=== PATIENT | female | born 1950 | race Caucasian/White ===

== ENCOUNTER → 2024-03-07 15:29 | Outpatient (REF) | payer OTHER, SELFPAY ==
[2024-03-07 16:09] LABS: % Basophils 0.8 % (0-2); % Eosinophils 2.8 % (0-6); % Immature Granulocytes 0.6 % (0-0.5); % Lymphocytes 34.7 % (20.5-51.1); % Monocytes 4.5 % (1.7-9.3); % Neutrophils 56.6 % (42.2-75.2); Absolute Eosinophils 0.1 10^3/uL (0-0.7); Absolute Lymphocytes 1.2 10^3/uL (1.2-3.4); Absolute Monocytes 0.2 10^3/uL (0.1-0.6); Hemoglobin 9.7 g/dL (12.0-16.0); Mean Corp Hgb Conc. 31.3 g/dL (33.0-37.0); Mean Corpuscular Hgb 33.3 pg (27.0-31.0); Mean Corpuscular Volume 106.5 fL (81.0-99.0); Mean Platelet Volume 10.7 fL (7.4-10.4); Nucleated Red Blood Cells % 0 %; Platelet Count 196 10^3/uL (130-400); Red Blood Cell Count 2.91 10^6/uL (4.20-5.40); Red Cell Dist. Width 17.8 % (11.5-14.5); White Blood Cell Count 3.6 10^3/uL (4.8-10.8)
[2024-03-07 16:25] LABS: ALT (SGPT) 32 U/L (0-35); AST (SGOT) 41 U/L (14-36); Albumin 4.6 g/dl (3.5-5.0); Alkaline Phosphatase 78 U/L (38-126); Blood Urea Nitrogen 31 mg/dl (7-17); Calcium 9.8 mg/dl (8.4-10.2); Carbon Dioxide 22 mmol/L (22-30); Chloride 107 mmol/L (98-107); Glucose 92 mg/dl (70-99); Potassium 4.3 mmol/L (3.5-5.1); Sodium 141 mmol/L (135-145); Total Bilirubin 0.4 mg/dl (0.2-1.3)
== END ==
LOC: OIDL 15:29
PROVIDERS: ATTENDING PHYSICIAN Nurse Practitioner Adult Health; FAMILY PHYSICIAN Internal Medicine
DX: C50.412 Malignant neoplasm of upper-outer quadrant of left female breast (principal); C79.51 Secondary malignant neoplasm of bone; C78.6 Secondary malignant neoplasm of retroperitoneum and peritoneum; R63.4 Abnormal weight loss
CPT/HCPCS: 80053; 85025

== ENCOUNTER → 2024-07-28 15:46 | Outpatient (REF) | payer OTHER, SELFPAY ==
[2024-07-28 13:36] LABS: % Basophils 1.6 % (0-2); % Lymphocytes 35.4 % (20.5-51.1); % Monocytes 6.8 % (1.7-9.3); % Neutrophils 55.2 % (42.2-75.2); Absolute Basophils 0.1 10^3/uL (0-0.2); Absolute Lymphocytes 1.1 10^3/uL (1.2-3.4); Absolute Monocytes 0.2 10^3/uL (0.1-0.6); Absolute Neutrophils 1.7 10^3/uL (1.4-6.5); Hematocrit 25.4 % (37.0-47.0); Hemoglobin 8.2 g/dL (12.0-16.0); Mean Corp Hgb Conc. 32.3 g/dL (33.0-37.0); Mean Corpuscular Hgb 34.5 pg (27.0-31.0); Mean Corpuscular Volume 106.7 fL (81.0-99.0); Mean Platelet Volume 9.4 fL (7.4-10.4); Platelet Count 240 10^3/uL (130-400); Red Blood Cell Count 2.38 10^6/uL (4.20-5.40); Red Cell Dist. Width 17.9 % (11.5-14.5); White Blood Cell Count 3.1 10^3/uL (4.8-10.8)
== END ==
LOC: OIDL 15:46
PROVIDERS: ATTENDING PHYSICIAN Internal Medicine Hematology & Oncology
DX: N63.21 Unspecified lump in the left breast, upper outer quadrant (principal); D63.8 Anemia in other chronic diseases classified elsewhere; D68.9 Coagulation defect, unspecified; R63.4 Abnormal weight loss; C50.412 Malignant neoplasm of upper-outer quadrant of left female breast; R60.0 Localized edema; R93.7 Abnormal findings on diagnostic imaging of other parts of musculoskeletal system; Z13.820 Encounter for screening for osteoporosis
CPT/HCPCS: 85025

== ENCOUNTER → 2024-11-17 14:42 | Outpatient (REF) | payer OTHER, SELFPAY ==
[2024-11-17 14:43] LABS: Hematocrit 25.3 % (37.0-47.0); Hemoglobin 8.0 g/dL (12.0-16.0); Mean Corp Hgb Conc. 31.6 g/dL (33.0-37.0); Mean Corpuscular Volume 105.0 fL (81.0-99.0); Platelet Count 278 10^3/uL (130-400); Red Cell Dist. Width 19.8 % (11.5-14.5)
== END ==
LOC: OIDL 14:42
PROVIDERS: ATTENDING PHYSICIAN Internal Medicine Hematology & Oncology
DX: N63.21 Unspecified lump in the left breast, upper outer quadrant (principal); D63.8 Anemia in other chronic diseases classified elsewhere; D68.9 Coagulation defect, unspecified; D64.9 Anemia, unspecified; R63.4 Abnormal weight loss; C50.412 Malignant neoplasm of upper-outer quadrant of left female breast; R60.0 Localized edema; R93.7 Abnormal findings on diagnostic imaging of other parts of musculoskeletal system; Z13.820 Encounter for screening for osteoporosis; R18.8 Other ascites; C79.51 Secondary malignant neoplasm of bone; C78.6 Secondary malignant neoplasm of retroperitoneum and peritoneum; D53.9 Nutritional anemia, unspecified; D63.0 Anemia in neoplastic disease
CPT/HCPCS: 85025

== ENCOUNTER → 2024-11-28 08:18 | Outpatient (REF) | payer OTHER, SELFPAY ==
[2024-11-28 09:35] LABS: Hematocrit 28.8 % (37.0-47.0); Hemoglobin 8.7 g/dL (12.0-16.0); Mean Corp Hgb Conc. 30.2 g/dL (33.0-37.0); Mean Corpuscular Volume 105.5 fL (81.0-99.0); Nucleated Red Blood Cells % 0.3 %; Platelet Count 397 10^3/uL (130-400); Red Cell Dist. Width 19.4 % (11.5-14.5)
[2024-11-28 09:57] LABS: Glycohemoglobin (HgbA1c) 5.2 % (4.0-5.6)
[2024-11-28 10:19] LABS: ALT (SGPT) 16 U/L (0-35); AST (SGOT) 27 U/L (14-36); Albumin 4.1 g/dl (3.5-5.0); Alkaline Phosphatase 87 U/L (38-126); Blood Urea Nitrogen 28 mg/dl (7-17); Calcium 9.4 mg/dl (8.4-10.2); Carbon Dioxide 30 mmol/L (22-30); Chloride 103 mmol/L (98-107); Glucose 89 mg/dl (70-99); Potassium 4.9 mmol/L (3.5-5.1); Sodium 141 mmol/L (135-145); Total Protein 7.5 g/dl (6.3-8.2); eGFR 39.73
== END ==
LOC: REG 08:18
PROVIDERS: ATTENDING PHYSICIAN Internal Medicine Hematology & Oncology; FAMILY PHYSICIAN Internal Medicine
DX: N63.21 Unspecified lump in the left breast, upper outer quadrant (principal); D63.8 Anemia in other chronic diseases classified elsewhere; D68.9 Coagulation defect, unspecified; D64.9 Anemia, unspecified; R63.4 Abnormal weight loss; C50.412 Malignant neoplasm of upper-outer quadrant of left female breast; R60.0 Localized edema; R93.7 Abnormal findings on diagnostic imaging of other parts of musculoskeletal system; Z13.820 Encounter for screening for osteoporosis; R18.8 Other ascites; C79.51 Secondary malignant neoplasm of bone; C78.6 Secondary malignant neoplasm of retroperitoneum and peritoneum; D53.9 Nutritional anemia, unspecified; D63.0 Anemia in neoplastic disease
CPT/HCPCS: 36415; 80053; 83036; 85025

== ENCOUNTER → 2024-11-30 16:22 | Outpatient (REF) | payer OTHER, SELFPAY ==
[2024-11-30 13:31] LABS: ALT (SGPT) 19 U/L (0-35); AST (SGOT) 31 U/L (14-36); Albumin 4.4 g/dl (3.5-5.0); Alkaline Phosphatase 91 U/L (38-126); Blood Urea Nitrogen 30 mg/dl (7-17); Calcium 10.3 mg/dl (8.4-10.2); Carbon Dioxide 32 mmol/L (22-30); Chloride 102 mmol/L (98-107); Glucose 85 mg/dl (70-99); Potassium 4.7 mmol/L (3.5-5.1); Sodium 141 mmol/L (135-145); Total Protein 8.0 g/dl (6.3-8.2); eGFR 33.84
== END ==
LOC: OIDL 16:22
PROVIDERS: ATTENDING PHYSICIAN Internal Medicine Hematology & Oncology
DX: N63.21 Unspecified lump in the left breast, upper outer quadrant (principal); D63.8 Anemia in other chronic diseases classified elsewhere; D68.9 Coagulation defect, unspecified; D64.9 Anemia, unspecified; R63.4 Abnormal weight loss; C50.412 Malignant neoplasm of upper-outer quadrant of left female breast; R60.0 Localized edema; R93.7 Abnormal findings on diagnostic imaging of other parts of musculoskeletal system; Z13.820 Encounter for screening for osteoporosis; R18.8 Other ascites; C79.51 Secondary malignant neoplasm of bone; C78.6 Secondary malignant neoplasm of retroperitoneum and peritoneum; D53.9 Nutritional anemia, unspecified; D63.0 Anemia in neoplastic disease
CPT/HCPCS: 80053

== ENCOUNTER → 2024-12-07 11:49 | Outpatient (REF) | payer OTHER, SELFPAY ==
[2024-12-07 13:39] LABS: Glucose 87 mg/dl (70-99)
== END ==
LOC: REG 11:49
PROVIDERS: ATTENDING PHYSICIAN Internal Medicine Hematology & Oncology; FAMILY PHYSICIAN Internal Medicine
DX: N63.21 Unspecified lump in the left breast, upper outer quadrant (principal); D63.8 Anemia in other chronic diseases classified elsewhere; D68.9 Coagulation defect, unspecified; D64.9 Anemia, unspecified; R63.4 Abnormal weight loss; C50.412 Malignant neoplasm of upper-outer quadrant of left female breast; R60.0 Localized edema; R93.7 Abnormal findings on diagnostic imaging of other parts of musculoskeletal system; Z13.820 Encounter for screening for osteoporosis; R18.8 Other ascites; C79.51 Secondary malignant neoplasm of bone; C78.6 Secondary malignant neoplasm of retroperitoneum and peritoneum; D53.9 Nutritional anemia, unspecified; D63.0 Anemia in neoplastic disease
CPT/HCPCS: 36415; 82947